=== PATIENT | female | born 1990 | race Caucasian/White ===

== ENCOUNTER 2018-09-09 07:47 | Outpatient (CLI) | payer MEDICAID | END 2018-09-09 07:48 | disposition home or self-care (01) | LOC: RAD 07:47 ==

== ENCOUNTER 2018-10-04 13:49 | Observation (INO) | payer MEDICAID ==
[2018-10-04 15:11] VITALS: BMI 30.9
[2018-10-04] MEDS ORDERED: Sodium Chloride 0.9% 1,000 ML IV STA (16:23)
[2018-10-04 16:35] LABS: ALB/GLOB RATIO 1.4 (1.1-1.8); ALBUMIN 4.9 g/dL (3.0-4.8); AMYLASE 74 U/L (35-125); BLOOD UREA NITROGEN 15 mg/dL (7-21); CALCIUM 9.3 mg/dL (8.4-10.5); GFR NON-AFRICAN AMERICAN > 60; LIPASE 141 U/L (23-300)
--- NOTE | 2018-10-04 16:35 | ED PDOC ---
Arrival/HPI - General Chief Complaint: GI Problem Time Seen by Provider: 10/04/18 13:53 Historian: Patient - History of Present Illness Narrative History of Present Illness (Text): 10/04/18 17:34 28 y/o female with PMH of alcohol abuse and seizure disorder presents to the ED c/o vomiting x 1 day. States she is withdrawing from alcohol. Last drink at 4am. She has been drinking upwards of 3 pints of liquor a day for the last 4 days. Associated epigastric and RUQ burning abdominal pain. States she has been taking her keppra as prescribed. Unable to recall the name of her neurologist, last dose last night. Denies fever, chills, chest pain, SOB, diarrhea, seizures, hallucinations, urinary symptoms, back pain, neck pain, headache, dizziness, vision changes, or any other associated complaints. Past Medical History - Provider Review Nursing Documentation Reviewed: Yes Primary Care Physician: Ashwin Jennings, DO - Infectious Disease Hx of Infectious Diseases: None - Past Medical History Past Medical History: Unable to Obtain - Cardiac Hx Hypertension: No - Pulmonary Hx Tuberculosis: No - Neurological Hx Seizures: Yes ("AT AGE 14") - HEENT Hx HEENT Disorder: No - Renal Hx Renal Disorder: No - Endocrine/Metabolic Hx Endocrine Disorders: No - Hematological/Oncological Hx Cancer: No - Integumentary Hx Dermatological Disorder: No - Musculoskeletal/Rheumatological Hx Musculoskeletal Disorders: No - Gastrointestinal Hx Gastrointestinal Disorders: No - Genitourinary/Gynecological Hx Sexually Transmitted Diseases: No - Psychiatric Hx Depression: No Hx Substance Use: Yes - Past Surgical History Past Surgical History: Unable to Obtain - Surgical History Other/Comment: Left oophorectomy - Anesthesia Hx Anesthesia: Yes Hx Anesthesia Reactions: No Hx Malignant Hyperthermia: No - Suicidal Assessment Feels Threatened In Home Enviroment: No Family/Social History - Physician Review Nursing Documentation Reviewed: Yes Family/Social History: No Known Family HX Smoking Status: Current Some Days Smoker Hx Alcohol Use: Yes Hx Substance Use: Yes Substance used: DENIED CURRENT USE, HAS USED "E" AND COCAINE IN THE PAST Allergies/Home Meds Allergies/Adverse Reactions: Allergies formaldehyde Allergy (Verified 07/20/18 15:45) RASH food coloring Adverse Reaction (Uncoded 07/20/18 15:45) RASH pasta Adverse Reaction (Uncoded 07/20/18 15:45) RASH pollens Adverse Reaction (Uncoded 07/20/18 15:45) RASH Home Medications: Home Meds Medication Instructions Recorded Confirmed Cholecalciferol [Vitamin D 1000 IU] 1,000 unit PO DAILY 07/20/18 07/20/18 Review of Systems - Review of Systems Constitutional: Normal. absent: Fevers Eyes: Normal. absent: Vision Changes ENT: Normal. absent: Sore Throat, Sinus Congestion Respiratory: Normal. absent: SOB, Cough Cardiovascular: absent: Chest Pain, Palpitations, Syncope Gastrointestinal: Abdominal Pain, Nausea, Vomiting Genitourinary Female: Normal. absent: Dysuria, Frequency Musculoskeletal: Normal. absent: Arthralgias, Back Pain, Neck Pain Skin: Normal. absent: Rash Neurological: Normal. absent: Headache, Dizziness, Focal Weakness Psychiatric: Anxiety Physical Exam Vital Signs Reviewed: Yes Vital Signs Temp Pulse Resp BP Pulse Ox 10/04/18 15:33 95 H 18 159/92 H 99 10/04/18 14:16 98.0 F 112 H 18 165/104 H 99 Temperature: Afebrile Blood Pressure: Hypertensive Pulse: Tachycardic Respiratory Rate: Normal Appearance: Positive for: Non-Toxic, Comfortable, Uncomfortable (vomiting) Pain Distress: None Mental Status: Positive for: Alert and Oriented X 3 - Systems Exam Head: Present: Atraumatic, Normocephalic Pupils: Present: PERRL Extroacular Muscles: Present: EOMI Conjunctiva: Present: Normal Mouth: Present: Dry Neck: Present: Normal Range of Motion. No: Meningeal Signs Respiratory/Chest: Present: Clear to Auscultation, Good Air Exchange. No: Respi ratory Distress, Accessory Muscle Use Cardiovascular: Present: Normal S1, S2, Peripheal Pulses Present, Tachycardic Abdomen: Present: Tenderness (RUQ, epigastric; mild), Normal Bowel Sounds. No: Distention, Peritoneal Signs, Rebound, Guarding Back: Present: Normal Inspection. No: CVA Tenderness Upper Extremity: Present: Normal ROM, NORMAL PULSES, Neurovascularly Intact, Capillary Refill < 2s, Other (chronic eczematous skin changes). No: Cyanosis, Edema, Temperature Abnormalties Lower Extremity: Present: NORMAL PULSES, Normal ROM, Neurovascularly Intact, Capillary Refill < 2 s, Other (chronic eczematous skin changes). No: Edema Neurological: Present: GCS=15, Speech Normal, Motor Func Grossly Intact, Normal Sensory Function, Gait Normal, Other (Tremulous ) Skin: Present: Warm, Dry, Normal Color, Other (chronic eczematous skin changes over extremities and face) Psychiatric: Present: Alert, Oriented x 3, Normal Insight, Normal Concentration, Normal Affect, Normal Mood Medical Decision Making ED Course and Treatment: 10/04/18 17:41 Initial Plan: * CBC, CMP * Coags * Alcohol level * Troponin * Keppra level * EKG * CXR * Ativan * IVF CIWA 15 points INPUTS: Nausea/vomiting > 6 = (More severe symptoms) Tremor > 4 = Moderate, with patient's arms extended Paroxysmal sweats > 0 = No sweat visible Anxiety > 3 = (More severe symptoms) Agitation > 0 = Normal activity Tactile disturbances > 1 = Very mild itching, pin and needles, burning, or numbness Auditory disturbances > 0 = Not present Visual disturbances > 0 = Not present Headache/fullness in head > 1 = Very mild Orientation/clouding of sensorium > 0 = Oriented, can do serial additions EKG shows sinus tachycardia at 108 without ischemic changes CXR unremarkable Patient reports improvement in tremors and anxiety with fluids and ativan. Bloodwork reviewed, anion gap of 25, low CO2. ABG ordered. Elevated bilirubin, US ordered. Mg low, repleted with Mg sulfate ABG unremarkable. US unremarkable for acute pathology. 18:[address] Victoria who accepted patient for remote telemetry observation admission with diagnosis of alcohol withdrawal. Pt updated with change in disposition. Pt resting comfortably in stretcher. Banana bag ordered. - Lab Interpretations Lab Results: 10/04/18 16:15 10/04/18 16:15 Lab Results 10/04/18 17:23: pCO2 31 L, pO2 94.0, HCO3 20.6 L, ABG pH 7.43, ABG Total CO2 21.6 L, ABG O2 Saturation 99.0 H, ABG Base Excess -2.7 L, ABG Potassium 3.5 L, Glucose 75, Lactate 4.2 H*, FiO2 21.0, Crit Value Called To Shira anaya, Crit Value Called By Ct, Blood Gas Notified Time 1730, Sodium 136.0, Chloride 102.0, Arterial Blood Potassium 3.5 L 10/04/18 16:15: Alcohol, Quantitative 116 H 04/29/19 16:15: Sodium 136, Potassium 4.0, Chloride 95 L, Carbon Dioxide 19 L, Anion Gap 25 H, BUN 15, Creatinine 0.5 L, Est GFR ( Amer) > 60, Est GFR (Non-Af Amer) > 60, Random Glucose 71, Calcium 9.3, Phosphorus 2.4 L, Magnesium 1.5 L, Total Bilirubin 1.9 H, Direct Bilirubin 0.3, AST 58 H D, ALT 23, Alkaline Phosphatase 71, Troponin I < 0.01, Total Protein 8.4 H, Albumin 4.9 H, Globulin 3.5, Albumin/Globulin Ratio 1.4, Amylase 74, Lipase 141 10/04/18 16:15: WBC 6.9, RBC 4.74, Hgb 14.4, Hct 40.7, MCV 85.9, MCH 30.4, MCHC 35.4, RDW 13.0, Plt Count 264, MPV 9.3, Neut % (Auto) 81.8 H, Lymph % (Auto) 13.2 L, Glasscock % (Auto) 3.8, Eos % (Auto) 0.9 L, Baso % (Auto) 0.3, Lymph # (Auto) 0.9 L, Glasscock # (Auto) 0.3, Eos # (Auto) 0.1, Baso # (Auto) 0.02, Absolute Neuts (auto) 5.67 I have reviewed the lab results: Yes - RAD Interpretation Narrative RAD Interpretations (Text): 10/04/18 17:39 CXR: FINDINGS: LUNGS: No active pulmonary disease. PLEURA: No significant pleural effusion identified, no pneumothorax apparent. CARDIOVASCULAR: No aortic atherosclerotic calcification present. Normal cardiac size. No pulmonary vascular congestion. OSSEOUS STRUCTURES: No significant abnormalities. VISUALIZED UPPER ABDOMEN: Normal. OTHER FINDINGS: None. IMPRESSION: No active disease. Radiology Orders: 10/04/18 15:16 CHEST PORTABLE [RAD] Stat Bag Cutter: Radiologist - EKG Interpretation EKG Interpretation (Text): 10/04/18 17:40 Rate 103; Sinus tachycardia; Normal intervals; No STEMI, nonspecific ST/T wave changes Interpreted by ED Physician: Yes Type: 12 lead EKG - Medication Orders Current Medication Orders: Sodium Chloride (Sodium Chloride 0.9%) 1,000 mls @ 999 mls/hr IV .Q1H1M STA Stop: 10/04/18 17:23 Ondansetron HCl (Zofran Inj) 4 mg IVP STAT STA Stop: 10/04/18 16:29 Discontinued Medications Lorazepam (Ativan) 2 mg IVP ONCE ONE Stop: 10/04/18 15:17 Disposition/Present on Arrival - Present on Arrival Any Indicators Present on Arrival: No History of DVT/PE: No History of Uncontrolled Diabetes: No Urinary Catheter: No History of Decub. Ulcer: No History Surgical Site Infection Following: None - Disposition Have Diagnosis and Disposition been Completed?: Yes Diagnosis: Alcohol withdrawal Disposition: HOSPITALIZED Disposition Time: 18:25 Patient Plan: Admission Patient Problems: Current Active Problems Problem Status Onset Alcohol withdrawal Acute Condition: STABLE
[2018-10-04 16:40] LABS: ALT/SGPT 23 U/L (7-56); AST/SGOT 58 U/L (14-36)
[2018-10-04 16:44] LABS: TROPONIN I < 0.01 ng/mL
[2018-10-04 16:47] LABS: BILIRUBIN,DIRECT 0.3 mg/dL (0.0-0.4)
[2018-10-04] MEDS ORDERED: Magnesium Sulfate 2 gm/50 ml 2 GM/50 ML BAG IVPB ONE (17:03)
--- NOTE | 2018-10-04 17:08 | RAD ---
Date of service: 10/04/2018 HISTORY: withdrawal COMPARISON: No prior. TECHNIQUE: 1 view obtained. FINDINGS: LUNGS: No active pulmonary disease. PLEURA: No significant pleural effusion identified, no pneumothorax apparent. CARDIOVASCULAR: No aortic atherosclerotic calcification present. Normal cardiac size. No pulmonary vascular congestion. OSSEOUS STRUCTURES: No significant abnormalities. VISUALIZED UPPER ABDOMEN: Normal. OTHER FINDINGS: None. IMPRESSION: No active disease.
[2018-10-04 17:16] LABS: BASO # 0.02 {null, K/mm3} (0.0-2.0); BASO % 0.3 % (0.0-3.0); EOS # 0.1 (0.0-0.7); EOS % 0.9 % (1.5-5.0); HEMOGLOBIN 14.4 g/dL (12.0-16.0); LYMPH # 0.9 (1.2-3.4); LYMPH % 13.2 % (22.0-35.0); MEAN CELL VOLUME 85.9 fl (80.0-105.0); MEAN CORPUSCULAR HEMOGLOBIN 30.4 pg (25.0-35.0); MEAN CORPUSCULAR HGB CONC 35.4 g/dl (31.0-37.0); MEAN PLATELET VOLUME 9.3 fl (7.0-11.0); MONO # 0.3 (0.1-0.6); MONO % 3.8 % (1.0-6.0); RBC 4.74 {null, 10^6/uL} (3.5-6.1); WHITE BLOOD COUNT 6.9 {null, 10^3/uL} (4.5-11.0)
[2018-10-04 17:29] LABS: ARTERIAL BLOOD GAS HCO3 20.6 mmol/L (21-28); ARTERIAL BLOOD GAS PCO2 31 mm/Hg (35-45); ARTERIAL BLOOD GAS PH 7.43 (7.35-7.45); ARTERIAL BLOOD GAS TCO2 21.6 mmol.L (22-28)
--- NOTE | 2018-10-04 18:01 | US ---
HISTORY: RUQ pain, vomiting, elevated bili COMPARISON: Hepatic ultrasound performed 03/02/18 TECHNIQUE: Sonographic evaluation of the abdomen. FINDINGS: LIVER: Measures 13.7 cm in sagittal dimension. Echogenic liver may be seen in setting of hepatic parenchymal disease or fatty infiltration. No focal hepatic mass identified. The main portal vein appears patent with normal directional flow. No intrahepatic bile duct dilatation. GALLBLADDER: No gallstones. No gallbladder wall thickening. Negative sonographic Mancilla's sign as assessed by the studio potter. COMMON BILE DUCT: Measures 2 mm. PANCREAS: Not well visualized. RIGHT KIDNEY: Measures 10.4 x 4.3 x 5.3cm. No obstructing calculus or hydronephrosis identified. LEFT KIDNEY: Measures 11.1 x 6.2 x 5.4cm. No obstructing calculus or hydronephrosis identified. 1.2 x 1.1 x 1.4 cm cyst. SPLEEN: Measures approximately 8.1 cm. AORTA: Limited views appear unremarkable. IVC: Limited views appear unremarkable. OTHER FINDINGS: None. IMPRESSION: Left renal cyst measures approximately 1.4 cm. Echogenic liver may be seen in setting of hepatic parenchymal disease or fatty infiltration.
[2018-10-04] MEDS ORDERED: Folic Acid 1 MG, Thiamine 100 MG, Multivitamin (MVI) 10 ML in Dextrose 5% In Water 1,00... IV SCH (18:15)
--- NOTE | 2018-10-04 18:47 | CP.PCM.HP ---
<Bhavani Mayo - Last Filed: 10/04/18 20:27> History of Present Illness - History of Present Illness History of Present Illness: Bhavani Mayo DO, PGY-2: HPI for Dr. Victoria 28 year old female with a past medical history of eczema, alcohol abuse, alcohol withdrawal who presents after she stopped drinking at 4 AM last night after binge drinking for three days. She reports in the last three days drinking 2.5 pints of vodka a day. She reports drinking since the age of 14. She reports also todayh having an inability to keep food down and 4 episodes of NBNB. She denies abdominal pain, chest pain, unilateral weakness or numbness, diarrhea, fever, chills, dysuria, seizures, or dyspnea. She admits to feeling anxious and having the shakes. She reports also not taking her Keppra for the past 3 days. She denies any other drug use. 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 Allergies: Formaldehyde, food coloring, pasta, pollens Social: 2-3 pints of vodka, denies illicit drug use Present on Admission - Present on Admission Any Indicators Present on Admission: No Review of Systems - Review of Systems All systems: reviewed and no additional remarkable complaints except (as per HPI) Past Patient History - Infectious Disease Hx of Infectious Diseases: None - Past Medical History & Family History Past Medical History?: Yes - Past Social History Smoking Status: Current Some Days Smoker - CARDIAC Hx Hypertension: No - PULMONARY Hx Tuberculosis: No - NEUROLOGICAL Hx Seizures: Yes ("AT AGE 14") - HEENT Hx HEENT Problems: No - RENAL Hx Chronic Kidney Disease: No - ENDOCRINE/METABOLIC Hx Endocrine Disorders: No - HEMATOLOGICAL/ONCOLOGICAL Hx Cancer: No - INTEGUMENTARY Hx Dermatological Problems: No - MUSCULOSKELETAL/RHEUMATOLOGICAL Hx Musculoskeletal Disorders: No - GASTROINTESTINAL Hx Gastrointestinal Disorders: No - GENITOURINARY/GYNECOLOGICAL Hx Sexually Transmitted Disorders: No - PSYCHIATRIC Hx Depression: No Hx Substance Use: Yes - SURGICAL HISTORY Other/Comment: Left oophorectomy - ANESTHESIA Hx Anesthesia: Yes Hx Anesthesia Reactions: No Hx Malignant Hyperthermia: No Meds Allergies/Adverse Reactions: Allergies Allergy/AdvReac Type Severity Reaction Status Date / Time formaldehyde Allergy RASH Verified 07/20/18 15:45 food coloring AdvReac RASH Uncoded 07/20/18 15:45 pasta AdvReac RASH Uncoded 07/20/18 15:45 pollens AdvReac RASH Uncoded 07/20/18 15:45 Physical Exam - Constitutional Appears: Other (anxious) - Head Exam Head Exam: ATRAUMATIC, NORMOCEPHALIC - Eye Exam Eye Exam: EOMI, Normal appearance, PERRL - ENT Exam ENT Exam: Mucous Membranes Dry - Neck Exam Neck exam: Positive for: Normal Inspection - Respiratory Exam Respiratory Exam: Clear to Auscultation Bilateral, NORMAL BREATHING PATTERN - Cardiovascular Exam Cardiovascular Exam: Tachycardia, +S1, +S2 - GI/Abdominal Exam GI & Abdominal Exam: Normal Bowel Sounds, Soft. absent: Guarding, Rebound - Extremities Exam Extremities exam: Positive for: normal inspection. Negative for: calf t enderness - Back Exam Back exam: absent: CVA tenderness (L), CVA tenderness (R) - Neurological Exam Neurological exam: Alert, CN II-XII Intact, Oriented x3 - Psychiatric Exam Psychiatric exam: Anxious - Skin Skin Exam: Dry, Intact, Normal Color, Warm Results - Vital Signs Recent Vital Signs: Last Vital Signs Temp 98.0 F 10/04/18 14:16 Pulse 98 H 10/04/18 17:21 Resp 18 10/04/18 17:21 BP 121/67 10/04/18 17:21 Pulse Ox 99 10/04/18 17:21 - Labs Result Diagrams: 10/04/18 16:15 10/04/18 16:15 Labs: Laboratory Results - last 24 hr 10/04/18 10/04/18 10/04/18 16:15 16:15 16:15 WBC 6.9 RBC 4.74 Hgb 14.4 Hct 40.7 MCV 85.9 MCH 30.4 MCHC 35.4 RDW 13.0 Plt Count 264 MPV 9.3 Neut % (Auto) 81.8 H Lymph % (Auto) 13.2 L Lares % (Auto) 3.8 Eos % (Auto) 0.9 L Baso % (Auto) 0.3 Lymph # (Auto) 0.9 L Lares # (Auto) 0.3 Eos # (Auto) 0.1 Baso # (Auto) 0.02 Absolute Neuts (auto) 5.67 pCO2 pO2 HCO3 ABG pH ABG Total CO2 ABG O2 Saturation ABG Base Excess ABG Potassium Glucose Lactate FiO2 Crit Value Called To Crit Value Called By Blood Gas Notified Time Sodium 136 Potassium 4.0 Chloride 95 L Carbon Dioxide 19 L Anion Gap 25 H BUN 15 Creatinine 0.5 L Est GFR ( Amer) > 60 Est GFR (Non-Af Amer) > 60 Random Glucose 71 Calcium 9.3 Phosphorus 2.4 L Magnesium 1.5 L Total Bilirubin 1.9 H Direct Bilirubin 0.3 AST 58 H D ALT 23 Alkaline Phosphatase 71 Troponin I < 0.01 Total Protein 8.4 H Albumin 4.9 H Globulin 3.5 Albumin/Globulin Ratio 1.4 Amylase 74 Lipase 141 Arterial Blood Potassium Alcohol, Quantitative 116 H 10/04/18 17:23 WBC RBC Hgb Hct MCV MCH MCHC RDW Plt Count MPV Neut % (Auto) Lymph % (Auto) Lares % (Auto) Eos % (Auto) Baso % (Auto) Lymph # (Auto) Lares # (Auto) Eos # (Auto) Baso # (Auto) Absolute Neuts (auto) pCO2 31 L pO2 94.0 HCO3 20.6 L ABG pH 7.43 ABG Total CO2 21.6 L ABG O2 Saturation 99.0 H ABG Base Excess -2.7 L ABG Potassium 3.5 L Glucose 75 Lactate 4.2 H* FiO2 21.0 Crit Value Called To Shira anaya Crit Value Called By Ct Blood Gas Notified Time 1730 Sodium 136.0 Potassium Chloride 102.0 Carbon Dioxide Anion Gap BUN Creatinine Est GFR ( Amer) Est GFR (Non-Af Amer) Random Glucose Calcium Phosphorus Magnesium Total Bilirubin Direct Bilirubin AST ALT Alkaline Phosphatase Troponin I Total Protein Albumin Globulin Albumin/Globulin Ratio Amylase Lipase Arterial Blood Potassium 3.5 L Alcohol, Quantitative Assessment & Plan - Assessment and Plan (Free Text) Assessment: 28 year old female with a past medical history of eczema, alcohol abuse, and alcohol-withdrawal seizures who presented with symptoms of alcohol withdrawal, vomiting, and the shakes. Plan: 1) Alcohol withdrawal - BAL on admission 126 - Ativan 2 mg q6h MOLLY - Ativan 1 mg q2h PRN for symptoms of TALYA - Banana bag 100 mls/hr x 2 - Seizures precautions - Fall precautions - fall precuations - NPO - Advance diet as tolerated - Clear liquid diet starting tomorrow for breakfast 2) Alcohol dependence - tar worker consulted - Alcohol cessation counselling provided 3) DVT/GI prophylaxis - SCD/Protonix 40 mg IVP Case was reviewed and discussed with attending physician, Dr. Victoria <[email or web address] - Last Filed: 10/06/18 13:38> Results - Vital Signs Recent Vital Signs: Last Vital Signs Temp 98.3 F 10/05/18 16:10 Pulse 95 H 10/05/18 16:10 Resp 21 10/05/18 16:10 BP 111/68 10/05/18 16:10 Pulse Ox 96 10/05/18 16:10 - Labs Result Diagrams: 10/05/18 06:00 10/05/18 06:00 Attending/Attestation - Attestation I have personally seen and examined this patient.: Yes I have fully participated in the care of the patient.: Yes I have reviewed all pertinent clinical information: Yes Notes (Text): 10/06/18 13:34 Attending note; Patient seen and examined with resident in ER. Patient is alert and awake. Complaining of tremors. Complaining of anxiety. Patient had an episode of nausea and vomiting in the ER. Patient has been binge drinking for the past few days. Patient is a 28 year old female with a past medical history of eczema, alcohol abuse, alcohol withdrawal who presents after she stopped drinking at 4 AM last night after binge drinking for three days. 1. Alcohol withdrawal symptoms; patient continues to drink for the past 3 days. Currently alcohol level is 116. Patient is anxious. Started on IV Ativan. Continue IV banana bag. Complete alcohol cessation is strongly advised. Information about AA meetings and rehab given. 2. Nausea vomiting; mostly secondary to withdrawal. continue Zofran as needed . 3. Seizure disorder; continue Keppra. 4. GI prophylaxis with Protonix. 5. Elevated LFTs; secondary to alcohol abuse. Monitor closely. Monitor closely in telemetry. tar worker evaluation requested. Upon discharge the patient will follow up with PMD Dr. Jennings.
[2018-10-04 18:50] LABS: URINE APPEARANCE CLEAR (CLEAR); URINE BILIRUBIN NEGATIVE (NEGATIVE); URINE BLOOD NEGATIVE (NEGATIVE); URINE COLOR YELLOW (YELLOW); URINE GLUCOSE (UA) NEGATIVE (NEGATIVE); URINE LEUKOCYTE ESTERASE TRACE Leu/uL (NEGATIVE); URINE PROTEIN 100 mg/dL (<30 mg/dL); URINE UROBILINOGEN 0.2 E.U./dL (<1 E.U./dL)
[2018-10-04 18:58] LABS: URINE BACTERIA MANY /hpf; URINE EPITHELIAL CELLS MANY /hpf (0-5); URINE WBC 0 - 2 /hpf (0-6)
[2018-10-04 21:28] LABS: VENOUS BLOOD GAS BASE EXCESS 2.7 mmol/L (0.0-2.0); VENOUS BLOOD GAS PO2 212 mm/Hg (30-55); VENOUS BLOOD PH 7.47 (7.32-7.43)
[2018-10-05 06:39] LABS: BASO # 0.01 {null, K/mm3} (0.0-2.0); BASO % 0.2 % (0.0-3.0); EOS # 0.5 (0.0-0.7); EOS % 8.7 % (1.5-5.0); LYMPH # 1.5 (1.2-3.4); LYMPH % 23.9 % (22.0-35.0); MEAN CELL VOLUME 87.1 fl (80.0-105.0); MEAN CORPUSCULAR HEMOGLOBIN 29.5 pg (25.0-35.0); MEAN CORPUSCULAR HGB CONC 33.9 g/dl (31.0-37.0); MEAN PLATELET VOLUME 8.7 fl (7.0-11.0); MONO # 0.2 (0.1-0.6); MONO % 3.9 % (1.0-6.0); RBC 4.17 {null, 10^6/uL} (3.5-6.1); RED CELL DISTRIBUTION WIDTH 13.1 % (11.5-14.5); WHITE BLOOD COUNT 6.1 {null, 10^3/uL} (4.5-11.0)
[2018-10-05 06:42] LABS: HEMOGLOBIN 12.3 g/dL (12.0-16.0)
[2018-10-05 07:38] LABS: ALB/GLOB RATIO 1.2 (1.1-1.8); ALBUMIN 3.9 g/dL (3.0-4.8); ALT/SGPT 18 U/L (7-56); AST/SGOT 44 U/L (14-36); BLOOD UREA NITROGEN 10 mg/dL (7-21); CALCIUM 8.9 mg/dL (8.4-10.5); GFR NON-AFRICAN AMERICAN > 60
--- NOTE | 2018-10-05 09:22 | CARD ---
APPROVED REPORT Date of service: 10/04/2018 EKG Measurement Heart [id number] <Conclusion> Sinus tachycardia Early reporlarization pattern; a normal variant Borderline Electrocardiogram
[2018-10-05] MEDS ORDERED: Multivitamin Therapeutic Tab PO SCH (10:00)
[2018-10-05] MEDS ORDERED: Potassium Chloride 20 mEq ER Tab PO SCH (10:00)
--- NOTE | 2018-10-05 10:32 | CP.PCM.DIS ---
<Keri De La Torre - Last Filed: 10/05/18 17:49> Provider - Provider Date of Admission: 10/04/18 18:10 Attending physician: Zeynep Victoria MD Primary care physician: Ashwin Jennings DO Consults: 10/04/18 22:32 Social Work Referral Routine Comment: PROTOCOL Physician Instructions: Reason For Exam: COLLEEN 9 10/04/18 22:45 Nursing Referral for Palliative Care Routine Comment: Physician Instructions: Reason For Exam: PALLIATIVE 6 10/05/18 07:21 [employer] [Case Management Referral] Routine Comment: Physician Instructions: Reason For Exam: Reason for Referral: Discharge Planning Time Spent in preparation of Discharge (in minutes): 60 Hospital Course - Lab Results Lab Results: Most Recent Lab Values WBC 6.1 10^3/uL (4.5-11.0) 10/05/18 06:00 RBC 4.17 10^6/uL (3.5-6.1) 10/05/18 06:00 Hgb 12.3 g/dL (12.0-16.0) D 10/05/18 06:00 Hct 36.3 % (36.0-48.0) 10/05/18 06:00 MCV 87.1 fl (80.0-105.0) 10/05/18 06:00 MCH 29.5 pg (25.0-35.0) 10/05/18 06:00 MCHC 33.9 g/dl (31.0-37.0) 10/05/18 06:00 RDW 13.1 % (11.5-14.5) 10/05/18 06:00 Plt Count 183 10^3/uL (120.0-450.0) 10/05/18 06:00 MPV 8.7 fl (7.0-11.0) 10/05/18 06:00 Neut % (Auto) 63.3 % (50.0-68.0) 10/05/18 06:00 Lymph % (Auto) 23.9 % (22.0-35.0) 10/05/18 06:00 Mills % (Auto) 3.9 % (1.0-6.0) 10/05/18 06:00 Eos % (Auto) 8.7 % (1.5-5.0) H 10/05/18 06:00 Baso % (Auto) 0.2 % (0.0-3.0) 10/05/18 06:00 Lymph # (Auto) 1.5 (1.2-3.4) 10/05/18 06:00 Mills # (Auto) 0.2 (0.1-0.6) 10/05/18 06:00 Eos # (Auto) 0.5 (0.0-0.7) 10/05/18 06:00 Baso # (Auto) 0.01 K/mm3 (0.0-2.0) 10/05/18 06:00 Absolute Neuts (auto) 3.86 (1.4-6.5) 10/05/18 06:00 pCO2 31 mm/Hg (35-45) L 10/04/18 17:23 pO2 212 mm/Hg (30-55) H 10/04/18 21:20 HCO3 20.6 mmol/L (21-28) L 10/04/18 17:23 ABG pH 7.43 (7.35-7.45) 10/04/18 17:23 ABG Total CO2 21.6 mmol.L (22-28) L 10/04/18 17:23 ABG O2 Saturation 99.0 % (95-98) H 10/04/18 17:23 ABG Base Excess -2.7 mmol/L (-2.0-3.0) L 10/04/18 17:23 ABG Potassium 3.5 mmol/L (3.6-5.2) L 10/04/18 17:23 VBG pH 7.47 (7.32-7.43) H 10/04/18 21:20 VBG pCO2 36.0 (40-60) L 10/04/18 21:20 VBG HCO3 26.2 mmol/l (21-28) 10/04/18 21:20 VBG Total CO2 27.3 mmol.L (22-28) 10/04/18 21:20 VBG O2 Sat (Calc) 99.6 % (40-65) H 10/04/18 21:20 VBG Base Excess 2.7 mmol/L (0.0-2.0) H 10/04/18 21:20 VBG Potassium 3.7 mmol/L (3.6-5.2) 10/04/18 21:20 Sodium 133.0 mmol/L (132-148) 10/04/18 21:20 Chloride 99.0 mmol/L (98-107) 10/04/18 21:20 Glucose 149 mg/dl (65-105) H 10/04/18 21:20 Lactate 1.3 mmol/L (0.7-2.1) 10/04/18 21:20 FiO2 21.0 % 10/04/18 21:20 Crit Value Called To Shira anaya 10/04/18 17:[address] By Ct 10/04/18 17:23 Blood Gas Notified Time 1730 10/04/18 17:23 Sodium 133 mmol/L (132-148) 10/05/18 06:00 Potassium 3.2 mmol/L (3.6-5.0) L 10/05/18 06:00 Chloride 97 mmol/L (98-107) L 10/05/18 06:00 Carbon Dioxide 26 mmol/L (21-33) 10/05/18 06:00 Anion Gap 13 (10-20) 10/05/18 06:00 BUN 10 mg/dL (7-21) 10/05/18 06:00 Creatinine 0.5 mg/dl (0.7-1.2) L 10/05/18 06:00 Est GFR ( Amer) > 60 10/05/18 06:00 Est GFR (Non-Af Amer) > 60 10/05/18 06:00 Random Glucose 80 mg/dL (70-110) 10/05/18 06:00 Calcium 8.9 mg/dL (8.4-10.5) 10/05/18 06:00 Phosphorus 2.4 mg/dL (2.5-4.5) L 10/04/18 16:15 Magnesium 2.2 mg/dL (1.7-2.2) 10/05/18 06:00 Total Bilirubin 2.8 mg/dL (0.2-1.3) H 10/05/18 06:00 Direct Bilirubin 0.3 mg/dL (0.0-0.4) 10/04/18 16:15 AST 44 U/L (14-36) H D 10/05/18 06:00 ALT 18 U/L (7-56) 10/05/18 06:00 Alkaline Phosphatase 54 U/L (38-126) 10/05/18 06:00 Ammonia < 9 umol/L (9-33) L 10/04/18 18:56 Troponin I < 0.01 ng/mL 10/04/18 16:15 Total Protein 7.0 g/dL (5.8-8.3) 10/05/18 06:00 Albumin 3.9 g/dL (3.0-4.8) 10/05/18 06:00 Globulin 3.2 gm/dL 10/05/18 06:00 Albumin/Globulin Ratio 1.2 (1.1-1.8) 10/05/18 06:00 Amylase 74 U/L (35-125) 10/04/18 16:15 Lipase 141 U/L (23-300) 10/04/18 16:15 Arterial Blood Potassium 3.5 mmol/L (3.6-5.2) L 10/04/18 17:23 Venous Blood Potassium 3.7 mmol/L (3.6-5.2) 10/04/18 21:20 Urine Color Yellow (YELLOW) 10/04/18 18:46 Urine Appearance Clear (CLEAR) 10/04/18 18:46 Urine pH 6.0 (4.7-8.0) 10/04/18 18:46 Ur Specific [place] >= 1.030 (1.005-1.035) 10/04/18 18:46 Urine Protein 100 mg/dL (<30 mg/dL) H 10/04/18 18:46 Urine Glucose (UA) Negative mg/dL (NEGATIVE) 10/04/18 18:46 Urine Ketones >=80 mg/dL (NEGATIVE) 10/04/18 18:46 Urine Blood Negative (NEGATIVE) 10/04/18 18:46 Urine Nitrate Negative (NEGATIVE) 10/04/18 18:46 Urine Bilirubin Negative (NEGATIVE) 10/04/18 18:46 Urine Urobilinogen 0.2 E.U./dL (<1 E.U./dL) 10/04/18 18:46 Ur Leukocyte Esterase Trace Jeronimo/uL (NEGATIVE) H 10/04/18 18:46 Urine RBC None /hpf (0-2) 10/04/18 18:46 Urine WBC 0 - 2 /hpf (0-6) 10/04/18 18:46 Ur Epithelial Cells Many /hpf (0-5) H 10/04/18 18:46 Urine Bacteria Many /hpf (NONE) 10/04/18 18:46 Alcohol, Quantitative 116 mg/dL (0-10) H 10/04/18 16:15 - Hospital Course Hospital Course: Keri De La Torre, PGY-1, Internal Medicine Discharge Summary for Dr. Victoria 28 year old female with a past medical history of eczema, alcohol abuse, seizure disorder, alcohol withdrawal presented status post cessation of drinking 4 AM yesterday. She had drank 2.5 pints of vodka a day for the past 3 days prior to admission. She reported drinking since the age of 17. Prior to admission, she had difficulty with PO intake and had 4 episodes of nonbloody,nonbilious vomitus. Patient had tried alcohol cessation for one month but relapsed 3 days ago. She reported anxiety and had tremors. She also reported noncompliance with her Keppra for the past 3 days. She denied any recreational drug use. Upon admission, abdominal ultrasound was performed for nausea and vomiting which showed echogenic liver and left renal cyst at 1.4 cm. Patient was started on CIWA protocol, given banana bag, and started on MVI, folate, and thiamine on admission. Home keppra was restarted. Patient was given 2 mg of ativan in the ED, given 2 mg of ativan in the evening by the medicine team, and started on ativan 2 mg Q6 and Q2 PRN. She was also started on zofran. Patient initially had CIWA of 14 which reduced to 2-3 for the rest of the day after the first ativan dose. Today, CIWA started at 3 at midnight and reduced to 1 now. However, patient still continued to have tachycardia and another banana bag was given to monitor for improvement. Patient requested to sign out AMA. Patient was explained the benefits of staying including continued diagnosis and treatment of conditions. Patient was told risk s of signing out including worsening of withdrawal, worsening of medical conditions, and . Patient was told to take all medications as prescribed. Patient was told to follow up with PCP within 3-5 days. Patient was told to return to the emergency room if she had any new or concerning symptoms. Discharge diagnoses Alcohol abuse/withdrawal Alcohol dependence Hepatic Steatosis - Date & Time of H&P Date of H&P: 10/04/18 Time of H&P: 18:43 Discharge Exam - Head Exam Head Exam: ATRAUMATIC, NORMOCEPHALIC - Eye Exam Eye Exam: EOMI, PERRL - ENT Exam ENT Exam: Mucous Membranes Moist - Respiratory Exam Respiratory Exam: Clear to PA & Lateral, NORMAL BREATHING PATTERN - Cardiovascular Exam Cardiovascular Exam: REGULAR RHYTHM, RRR, +S1, +S2. absent: Clicks, Gallop, Rubs - GI/Abdominal Exam GI & Abdominal Exam: Normal Bowel Sounds, Soft. absent: Distended, Firm, Guarding, Tenderness - Extremities Exam Extremities exam: full ROM, normal capillary refill, normal inspection - Neurological Exam Neurological exam: Alert, CN II-XII Intact, Normal Gait, Oriented x3 Additional comments: no tremor - Skin Skin Exam: Dry, Intact, Normal Color Discharge Plan - Follow Up Plan Condition: STABLE Disposition: AGAINST MEDICAL ADVICE Referrals: Ashwin Jennings DO [Primary Care Provider] - <Zeynep Victoria - Last Filed: 10/06/18 13:41> Provider - Provider Date of Admission: 10/04/18 18:10 Attending physician: Zeynep Victoria MD Primary care physician: Ashwin Jennings DO Consults: 10/04/18 22:32 Social Work Referral Routine Comment: PROTOCOL Physician Instructions: Reason For Exam: COLLEEN 9 10/04/18 22:45 Nursing Referral for Palliative Care Routine Comment: Physician Instructions: Reason For Exam: PALLIATIVE 6 10/05/18 07:21 [employer] [Case Management Referral] Routine Comment: Physician Instructions: Reason For Exam: Alcohol rehab Reason for Referral: Discharge Planning Hospital Course - Lab Results Lab Results: Micro Results 10/04/18 23:27 Urine,Clean Catch Urine Culture - Final Gram Positive Cocci Most Recent Lab Values WBC 6.1 10^3/uL (4.5-11.0) 10/05/18 06:00 RBC 4.17 10^6/uL (3.5-6.1) 10/05/18 06:00 Hgb 12.3 g/dL (12.0-16.0) D 10/05/18 06:00 Hct 36.3 % (36.0-48.0) 10/05/18 06:00 MCV 87.1 fl (80.0-105.0) 10/05/18 06:00 MCH 29.5 pg (25.0-35.0) 10/05/18 06:00 MCHC 33.9 g/dl (31.0-37.0) 10/05/18 06:00 RDW 13.1 % (11.5-14.5) 10/05/18 06:00 Plt Count 183 10^3/uL (120.0-450.0) 10/05/18 06:00 MPV 8.7 fl (7.0-11.0) 10/05/18 06:00 Neut % (Auto) 63.3 % (50.0-68.0) 10/05/18 06:00 Lymph % (Auto) 23.9 % (22.0-35.0) 10/05/18 06:00 Mills % (Auto) 3.9 % (1.0-6.0) 10/05/18 06:00 Eos % (Auto) 8.7 % (1.5-5.0) H 10/05/18 06:00 Baso % (Auto) 0.2 % (0.0-3.0) 10/05/18 06:00 Lymph # (Auto) 1.5 (1.2-3.4) 10/05/18 06:00 Mills # (Auto) 0.2 (0.1-0.6) 10/05/18 06:00 Eos # (Auto) 0.5 (0.0-0.7) 10/05/18 06:00 Baso # (Auto) 0.01 K/mm3 (0.0-2.0) 10/05/18 06:00 Absolute Neuts (auto) 3.86 (1.4-6.5) 10/05/18 06:00 pCO2 31 mm/Hg (35-45) L 10/04/18 17:23 pO2 212 mm/Hg (30-55) H 10/04/18 21:20 HCO3 20.6 mmol/L (21-28) L 10/04/18 17:23 ABG pH 7.43 (7.35-7.45) 10/04/18 17:23 ABG Total CO2 21.6 mmol.L (22-28) L 10/04/18 17:23 ABG O2 Saturation 99.0 % (95-98) H 10/04/18 17:23 ABG Base Excess -2.7 mmol/L (-2.0-3.0) L 10/04/18 17:23 ABG Potassium 3.5 mmol/L (3.6-5.2) L 10/04/18 17:23 VBG pH 7.47 (7.32-7.43) H 10/04/18 21:20 VBG pCO2 36.0 (40-60) L 10/04/18 21:20 VBG HCO3 26.2 mmol/l (21-28) 10/04/18 21:20 VBG Total CO2 27.3 mmol.L (22-28) 10/04/18 21:20 VBG O2 Sat (Calc) 99.6 % (40-65) H 10/04/18 21:20 VBG Base Excess 2.7 mmol/L (0.0-2.0) H 10/04/18 21:20 VBG Potassium 3.7 mmol/L (3.6-5.2) 10/04/18 21:20 Sodium 133.0 mmol/L (132-148) 10/04/18 21:20 Chloride 99.0 mmol/L (98-107) 10/04/18 21:20 Glucose 149 mg/dl (65-105) H 10/04/18 21:20 Lactate 1.3 mmol/L (0.7-2.1) 10/04/18 21:20 FiO2 21.0 % 10/04/18 21:20 Crit Value Called To Shira anaya 10/04/18 17:[address] 10/04/18 17:23 Blood Gas Notified Time 1730 10/04/18 17:23 Sodium 133 mmol/L (132-148) 10/05/18 06:00 Potassium 3.2 mmol/L (3.6-5.0) L 10/05/18 06:00 Chloride 97 mmol/L (98-107) L 10/05/18 06:00 Carbon Dioxide 26 mmol/L (21-33) 10/05/18 06:00 Anion Gap 13 (10-20) 10/05/18 06:00 BUN 10 mg/dL (7-21) 10/05/18 06:00 Creatinine 0.5 mg/dl (0.7-1.2) L 10/05/18 06:00 Est GFR ( Amer) > 60 10/05/18 06:00 Est GFR (Non-Af Amer) > 60 10/05/18 06:00 Random Glucose 80 mg/dL (70-110) 10/05/18 06:00 Calcium 8.9 mg/dL (8.4-10.5) 10/05/18 06:00 Phosphorus 2.4 mg/dL (2.5-4.5) L 10/04/18 16:15 Magnesium 2.2 mg/dL (1.7-2.2) 10/05/18 06:00 Total Bilirubin 2.8 mg/dL (0.2-1.3) H 10/05/18 06:00 Direct Bilirubin 0.3 mg/dL (0.0-0.4) 10/04/18 16:15 AST 44 U/L (14-36) H D 10/05/18 06:00 ALT 18 U/L (7-56) 10/05/18 06:00 Alkaline Phosphatase 54 U/L (38-126) 10/05/18 06:00 Ammonia < 9 umol/L (9-33) L 10/04/18 18:56 Troponin I < 0.01 ng/mL 10/04/18 16:15 Total Protein 7.0 g/dL (5.8-8.3) 10/05/18 06:00 Albumin 3.9 g/dL (3.0-4.8) 10/05/18 06:00 Globulin 3.2 gm/dL 10/05/18 06:00 Albumin/Globulin Ratio 1.2 (1.1-1.8) 10/05/18 06:00 Amylase 74 U/L (35-125) 10/04/18 16:15 Lipase 141 U/L (23-300) 10/04/18 16:15 Arterial Blood Potassium 3.5 mmol/L (3.6-5.2) L 10/04/18 17:23 Venous Blood Potassium 3.7 mmol/L (3.6-5.2) 10/04/18 21:20 Urine Color Yellow (YELLOW) 10/04/18 18:46 Urine Appearance Clear (CLEAR) 10/04/18 18:46 Urine pH 6.0 (4.7-8.0) 10/04/18 18:46 Ur Specific [place] >= 1.030 (1.005-1.035) 10/04/18 18:46 Urine Protein 100 mg/dL (<30 mg/dL) H 10/04/18 18:46 Urine Glucose (UA) Negative mg/dL (NEGATIVE) 10/04/18 18:46 Urine Ketones >=80 mg/dL (NEGATIVE) 10/04/18 18:46 Urine Blood Negative (NEGATIVE) 10/04/18 18:46 Urine Nitrate Negative (NEGATIVE) 10/04/18 18:46 Urine Bilirubin Negative (NEGATIVE) 10/04/18 18:46 Urine Urobilinogen 0.2 E.U./dL (<1 E.U./dL) 10/04/18 18:46 Ur Leukocyte Esterase Trace Jeronimo/uL (NEGATIVE) H 10/04/18 18:46 Urine RBC None /hpf (0-2) 10/04/18 18:46 Urine WBC 0 - 2 /hpf (0-6) 10/04/18 18:46 Ur Epithelial Cells Many /hpf (0-5) H 10/04/18 18:46 Urine Bacteria Many /hpf (NONE) 10/04/18 18:46 Alcohol, Quantitative 116 mg/dL (0-10) H 10/04/18 16:15 Attending/Attestation - Attestation I have personally seen and examined this patient.: Yes I have fully participated in the care of the patient.: Yes I have reviewed all pertinent clinical information, including history, physical exam and plan: Yes Notes (Text): 10/06/18 13:38 Attending note; Patient seen and examined with resident. Patient is alert and awake. Tachycardia is resolving. Nausea and vomiting resolved . patient is a 28 year old female with a past medical history of eczema, alcohol abuse, alcohol withdrawal who presents after she stopped drinking at 4 AM last night after binge drinking for three days. 1. Alcohol withdrawal symptoms; patient continues to drink for the past 3 days. on IV Ativan. Continue IV banana bag. Complete alcohol cessation is strongly advised. Information about AA meetings and rehab given. 2. Nausea vomiting; resolved. Started on regular diet . continue Zofran as needed . 3. Seizure disorder; continue Keppra. 4. GI prophylaxis with Protonix. 5. Elevated LFTs; secondary to alcohol abuse. Monitor closely. Monitor closely in telemetry. hot iron worker evaluation appreciated. Upon discharge the patient will follow up with PMD Dr. Jennings. Addendum; Patient signed AGAINST MEDICAL ADVICE..
[2018-10-05] MEDS ORDERED: Folic Acid 1 MG, Thiamine 100 MG, Multivitamin (MVI) 10 ML in Dextrose 5% In Water 1,00... IV SCH (11:15)
[2018-10-05] MEDS ORDERED: Hydrocerin(120 gm) TOP SCH (11:15)
[2018-10-05] MEDS ORDERED: Hydrocortisone 1% Cream (30 GM) TOP SCH (11:15)
--- NOTE | 2018-10-05 13:38 | CP.PCM.PN ---
<Keri De La Torre - Last Filed: 10/05/18 14:49> Subjective - Date & Time of Evaluation Date of Evaluation: 10/05/18 Time of Evaluation: 14:49 - Subjective Subjective: Keri De La Torre, PGY-1, Internal Medicine Progress Note for Dr. Victoria Patient seen and evaluated at bedside. Patient had no acute overnight events. Patient's CIWA scores ranged from 1-3 overnight. Patient denied any symptoms at this time and reported improvement in nausea and vomiting. Patient reports minimal tremors. 12-point ROS was unremarkable except for what was mentioned above. Objective - Vital Signs/Intake and Output Vital Signs (last 24 hours): Temp Pulse Resp BP Pulse Ox 98.4 F 80 20 123/82 97 10/05/18 09:01 10/05/18 09:01 10/05/18 09:01 10/05/18 09:01 10/05/18 09:01 Intake and Output: 10/05/18 10/05/18 06:59 18:59 Intake Total 120 Balance 120 - Medications Medications: Current Medications Fluocinonide (Lidex 0.05% Cream) 0 gm TOP BID [facility] Last Admin: 10/05/18 10:08 Dose: 1 applic Folic Acid (Folic Acid) 1 mg PO DAILY [facility] Last Admin: 10/05/18 10:06 Dose: 1 mg Hydrocortisone (Cortizone 1% Cream) 0 gm TOP BID [facility] Last Admin: 10/05/18 12:24 Dose: 1 applic Folic Acid 1 mg/ Thiamine HCl 100 mg/ Multivitamins/Vitamin C 10 ml/ Dextrose 1,011.2 mls @ 100 mls/hr IV .Q10H7M [facility] Stop: 10/05/18 14:28 Last Admin: 10/04/18 20:23 Dose: 100 mls/hr Folic Acid 1 mg/ Thiamine HCl 100 mg/ Multivitamins/Vitamin C 10 ml/ Dextrose 1,011.2 mls @ 100 mls/hr IV .Q10H7M [facility] Last Admin: 10/05/18 12:24 Dose: 100 mls/hr Levetiracetam (Keppra) 500 mg PO BID [facility] Last Admin: 10/05/18 10:07 Dose: 500 mg Lorazepam (Ativan) 1 mg IVP Q2H PRN; Protocol PRN Reason: Symptoms of alcohol withdrawl Lorazepam (Ativan) 2 mg IVP Q12H [facility]; Protocol Last Admin: 10/05/18 12:24 Dose: Not Given Mirtazapine (Remeron) 30 mg PO HS [facility] Last Admin: 10/04/18 23:42 Dose: 30 mg Multi-Ingredient Cream (Hydrocerin Cream) 0 ea TOP DAILY [facility] Last Admin: 10/05/18 12:25 Dose: 1 applic Multivitamins (Thera Tab) 1 tab PO DAILY [facility] Last Admin: 10/05/18 10:24 Dose: 1 tab Ondansetron HCl (Zofran Inj) 4 mg IVP Q6H PRN PRN Reason: Nausea/Vomiting Pantoprazole Sodium (Protonix Inj) 40 mg IVP DAILY [facility] Last Admin: 10/05/18 10:24 Dose: 40 mg Potassium Chloride (K-Dur 20 Meq Er Tab) 40 meq PO BID [facility] Stop: 10/05/18 18:01 Last Admin: 10/05/18 10:07 Dose: 40 meq Thiamine HCl (Vitamin B1 Tab) 100 mg PO DAILY [facility] Last Admin: 10/05/18 10:24 Dose: 100 mg Trazodone HCl (Desyrel) 100 mg PO HS PRN PRN Reason: Insomnia Last Admin: 10/04/18 23:42 Dose: 100 mg - Labs Labs: 10/05/18 06:00 10/05/18 06:00 - Head Exam Head Exam: ATRAUMATIC, NORMOCEPHALIC - Eye Exam Eye Exam: EOMI, PERRL - ENT Exam ENT Exam: Mucous Membranes Moist - Respiratory Exam Respiratory Exam: Clear to PA & Lateral, NORMAL BREATHING PATTERN - Cardiovascular Exam Cardiovascular Exam: REGULAR RHYTHM, RRR, +S1, +S2. absent: Clicks, Gallop, Rubs - GI/Abdominal Exam GI & Abdominal Exam: Normal Bowel Sounds, Soft. absent: Distended, Firm, Guarding, Tenderness - Extremities Exam Extremities exam: full ROM, normal capillary refill, normal inspection - Neurological Exam Neurological exam: Alert, CN II-XII Intact, Normal Gait, Oriented x3 Additional comments: no tremor - Skin Skin Exam: Dry, Intact, Normal Color Assessment and Plan - Assessment and Plan (Free Text) Assessment: 28 year old female with a past medical history of eczema, alcohol abuse, and alcohol-withdrawal seizures presented with symptoms of alcohol withdrawal, vomiting, and tremors. Plan: Alcohol withdrawal -Blood alcohol level on admission was 126 -Given banana bagx2 in the emergency department. Will give on more banana bag d ue to tachycardia at this time -Continue patient on MVI, thiamine, and folate -CIWA protocol initiated -CIWA has ranged from 1-3 -Fall precautions -Seizure precautions -Patient is now tolerating diet well -Continue ativan 2 mg Q6 -Continue ativan 1 mg Q2PRN for withdrawal symptoms Eczema -Started hydrocortisone cream History of seizures -Continue keppra 500 mg BID Alcohol dependence -Alcohol cessation counseling provided History of depression -Continue with mirtazapine Hypokalemia -Replete as needed DVT prophylaxis: SCD GI prophylaxis: protonix 40 mg daily Patient plan discussed with Dr. Victoria. <Zeynep Victoria - Last Filed: 10/06/18 13:42> Objective - Vital Signs/Intake and Output Vital Signs (last 24 hours): Temp Pulse Resp BP Pulse Ox 98.3 F 95 H 21 111/68 96 10/05/18 16:10 10/05/18 16:10 10/05/18 16:10 10/05/18 16:10 10/05/18 16:10 - Labs Labs: 10/05/18 06:00 10/05/18 06:00 Attending/Attestation - Attestation I have personally seen and examined this patient.: Yes I have fully participated in the care of the patient.: Yes I have reviewed all pertinent clinical information, including history, physical exam and plan: Yes Notes (Text): 10/06/18 13:42 Attending note; Patient seen and examined with resident. Patient is alert and awake. Tachycardia is resolving. Nausea and vomiting resolved . patient is a 28 year old female with a past medical history of eczema, alcohol abuse, alcohol withdrawal who presents after she stopped drinking at 4 AM last night after binge drinking for three days. 1. Alcohol withdrawal symptoms; patient continues to drink for the past 3 days. on IV Ativan. Continue IV banana bag. Complete alcohol cessation is strongly advised. Information about AA meetings and rehab given. 2. Nausea vomiting; resolved. Started on regular diet . continue Zofran as needed . 3. Seizure disorder; continue Keppra. 4. GI prophylaxis with Protonix. 5. Elevated LFTs; secondary to alcohol abuse. Monitor closely. Monitor closely in telemetry. charhouse worker evaluation appreciated. Upon discharge the patient will follow up with PMD Dr. Jennings.
[2018-10-05] MEDS ORDERED: HYDROmorphone 0.5 mg/0.5 ml ISec ONE (14:31)
[2018-10-05 16:11] VITALS: BP 111/68; PULSE 95; RESP 21; TEMP 98.3; O2SAT 96
== END 2018-10-05 18:24 | disposition left against medical advice (07) ==
LOC: ED 13:49 → ERH 18:10 → 3RSO 21:48
PROVIDERS: ADMIT Internal Medicine; ATTEND Internal Medicine
DX: F10.239 Alcohol dependence with withdrawal, unspecified (principal); Y90.5 Blood alcohol level of 100-119 mg/100 ml; G40.909 Epilepsy, unspecified, not intractable, without status epilepticus; E87.6 Hypokalemia; L30.9 Dermatitis, unspecified; K76.0 Fatty (change of) liver, not elsewhere classified; N28.1 Cyst of kidney, acquired; Z87.891 Personal history of nicotine dependence; Z91.14 Patient's other noncompliance with medication regimen
CPT/HCPCS: 36415; 71045; 76700; 80053; 80177; 80320; 81001; 81025; 82140; 82150; 82248; 82803; 83690; 83735; 84100; 84484; 85025; 87086; 93005; 96360; 96374; 99285; C9113; G0378; J1170; J2060; J2405; J3411; J7030; J7070

== ENCOUNTER 2018-11-01 04:46 | Emergency (ER) | payer BC, MEDICAID ==
[2018-11-01 04:47] VITALS: BMI 30.9
[2018-11-01 04:55] VITALS: TEMP 98.4
--- NOTE | 2018-11-01 05:06 | ED PDOC ---
Arrival/HPI - General Chief Complaint: Abnormal Skin Integrity Time Seen by Provider: 11/01/18 04:48 Historian: Patient - History of Present Illness Narrative History of Present Illness (Text): 11/01/18 05:05 Sophie George is a 28 year old female, with no significant past medical history, who presents to the ED status post fall. Patient states she took Trazodone yesterday evening and fell when she attempted to get out of bed this morning. Patient hit her chin and sustained a laceration to the area. Patient denies any chest pain, shortness of breath, nausea, vomiting, neck pain, headache, dizziness, or any other complaints. Time/Duration: Prior to Arrival Symptom Onset: Sudden Symptom Course: Unchanged Activities at Onset: Light Context: Walking, Home, Tripped Past Medical History - Provider Review Nursing Documentation Reviewed: Yes Primary Care Provider: Ashwin Jennings - Infectious Disease Hx of Infectious Diseases: None - Past Medical History Past Medical History: Unable to Obtain - Cardiac Hx Hypertension: No - Pulmonary Hx Respiratory Disorders: No Hx Tuberculosis: No - Neurological Hx Neurological Disorder: Yes Hx Seizures: Yes ("AT AGE 14") - HEENT Hx HEENT Disorder: No - Renal Hx Renal Disorder: No - Endocrine/Metabolic Hx Endocrine Disorders: No - Hematological/Oncological Hx Cancer: No - Integumentary Hx Dermatological Disorder: No Other/Comment: Eczema - Musculoskeletal/Rheumatological Hx Musculoskeletal Disorders: Yes Hx Falls: Yes - Gastrointestinal Hx Gastrointestinal Disorders: No - Genitourinary/Gynecological Hx Sexually Transmitted Diseases: No - Psychiatric Hx Depression: No Hx Substance Use: Yes - Past Surgical History Past Surgical History: Unable to Obtain - Surgical History Hx Appendectomy: Yes - Anesthesia Hx Anesthesia: Yes Hx Anesthesia Reactions: No Hx Malignant Hyperthermia: No - Suicidal Assessment Feels Threatened In Home Enviroment: No Family/Social History - Physician Review Nursing Documentation Reviewed: Yes Family/Social History: Unknown Family HX Smoking Status: Light Smoker < 10 Cigarettes Daily Hx Alcohol Use: Yes Hx Substance Use: Yes Substance used: DENIED CURRENT USE, HAS USED "E" AND COCAINE IN THE PAST Allergies/Home Meds Allergies/Adverse Reactions: Allergies corn Allergy (Verified 11/01/18 04:56) RASH formaldehyde Allergy (Verified 10/17/18 05:00) RASH food coloring Adverse Reaction (Uncoded 10/17/18 05:00) RASH pasta Adverse Reaction (Uncoded 10/17/18 05:00) RASH pollens Adverse Reaction (Uncoded 10/17/18 05:00) RASH Home Medications: Home Meds Medication Instructions Recorded Confirmed Buspirone HCl 7.5 mg PO BID 11/01/18 11/01/18 Cetirizine HCl [Allergy Relief] 10 mg PO HS 11/01/18 11/01/18 Ergocalciferol (Vitamin D2) 1.25 mg PO QWK 11/01/18 11/01/18 [Vitamin D2] Loratadine [Allergy Relief] 10 mg PO DAILY 11/01/18 11/01/18 Review of Systems - Physician Review All systems were reviewed & negative as marked: Yes - Review of Systems Constitutional: Normal. absent: Fevers Eyes: Normal ENT: Normal Respiratory: Normal. absent: SOB, Cough Cardiovascular: Normal. absent: Chest Pain Gastrointestinal: Normal. absent: Abdominal Pain, Diarrhea, Nausea, Vomiting Genitourinary Female: Normal. absent: Dysuria, Frequency, Hematuria, Urine Output Changes Musculoskeletal: Normal. absent: Back Pain, Neck Pain Skin: Laceration. absent: Rash Neurological: Normal. absent: Headache, Dizziness Endocrine: Normal Hemo/Lymphatic: Normal Psychiatric: Normal Physical Exam Vital Signs Reviewed: Yes Vital Signs Temp Pulse Resp BP Pulse Ox 11/01/18 04:53 98.4 F 108 H 23 126/62 97 Temperature: Afebrile Blood Pressure: Normal Pulse: Regular Respiratory Rate: Normal Appearance: Positive for: Well-Appearing, Non-Toxic, Comfortable Pain Distress: None Mental Status: Positive for: Alert and Oriented X 3 - Systems Exam Head: Present: Normocephalic, Laceration (3cm laceration to chin) Pupils: Present: PERRL Extroacular Muscles: Present: EOMI Conjunctiva: Present: Normal Mouth: Present: Moist Mucous Membranes Neck: Present: Normal Range of Motion Respiratory/Chest: Present: Clear to Auscultation, Good Air Exchange. No: Respiratory Distress, Accessory Muscle Use Cardiovascular: Present: Regular Rate and Rhythm, Normal S1, S2. No: Murmurs Abdomen: No: Tenderness, Distention, Peritoneal Signs Back: Present: Normal Inspection Upper Extremity: Present: Normal Inspection. No: Cyanosis, Edema Lower Extremity: Present: Normal Inspection. No: Edema Neurological: Present: GCS=15, CN II-XII Intact, Speech Normal Skin: Present: Warm, Dry, Normal Color. No: Rashes Psychiatric: Present: Alert, Oriented x 3, Normal Insight, Normal Concentration Medical Decision Making ED Course and Treatment: 11/01/18 05:15 Impression: 28 year old female complaining of a chin laceration s/p fall. Plan: -- TDAP -- Laceration repair -- Reassess and disposition Prior Visits: Notes and results from previous visits were reviewed. Progress Notes: PROCEDURE: LACERATION REPAIR Performed by the emergency provider Location: Chin Length: 3 cm Description: clean wound edges, no foreign bodies Distal CMS: Normal. No deficits. Neurovascularly intact. Anesthesia: Lidocaine 1% Preparation: The wound was cleaned with NS and [place]. The area was prepped and draped in the usual sterile fashion. Exploration: The wound was explored and no foreign bodies were found. Procedure: The wound was closed with 5-0 nylon. There was good approximation. In total, 5 sutures were used. Post-Procedure: Good closure and hemostasis. The patient tolerated the procedure well and there were no complications. CSM remains intact. Post procedure dressing applied. - Scribe Statement The provider has reviewed the documentation as recorded by the Neto Sanchez Provider Scribe Attestation: All medical record entries made by the Scribe were at my direction and personally dictated by me. I have reviewed the chart and agree that the record accurately reflects my personal performance of the history, physical exam, [facility] decision making, and the department course for this patient. I have also personally directed, reviewed, and agree with the discharge instructions and disposition. Disposition/Present on Arrival - Present on Arrival Any Indicators Present on Arrival: No History of DVT/PE: No History of Uncontrolled Diabetes: No Urinary Catheter: No History of Decub. Ulcer: No History Surgical Site Infection Following: None - Disposition Have Diagnosis and Disposition been Completed?: Yes Diagnosis: Facial laceration Disposition: HOME/ ROUTINE Disposition Time: 05:50 Condition: IMPROVED Discharge Instructions (ExitCare): Laceration Repair, Laceration Repair With Stitches (DC) Additional Instructions: sutures out in 7 days Forms: [employer] ([place])
[2018-11-01] MEDS ORDERED: Lidocaine 1% 5ml Abboject ONE (05:24)
[2018-11-01] MEDS ORDERED: Lidocaine 1% Inj (20ml) ONE (05:25)
[2018-11-01] MEDS ORDERED: TDAP Vaccine 0.5 mL Syr IM ONE (05:39)
[2018-11-01 05:49] VITALS: BP 122/61; PULSE 102; RESP 19; O2SAT 98
== END 2018-11-01 05:48 | disposition home or self-care (01) ==
LOC: ED 04:46
DX: S01.81XA Laceration without foreign body of other part of head, initial encounter (principal); W18.39XA Other fall on same level, initial encounter; Y92.003 Bedroom of unspecified non-institutional (private) residence as the place of occurrence of the external cause; Z23 Encounter for immunization